=== PATIENT | female | born 1980 | race Hispanic/Latino ===

== ENCOUNTER 2017-08-17 19:04 | Emergency (ER) | payer MEDICAID ==
[2017-08-17] MEDS ORDERED: HYDROXYZINE HCL 25 MG TABLET ONE (19:30)
== END 2017-08-17 20:16 | disposition home or self-care (01) ==
LOC: EDH 19:04
DX: F41.1 Generalized anxiety disorder (principal); Z98.890 Other specified postprocedural states; Z72.0 Tobacco use

== ENCOUNTER → 2022-05-21 | Outpatient (CLI) | payer MEDICAID | END | disposition home or self-care (01) | LOC: RAH 12:41 | PROVIDERS: ATTEND Obstetrics & Gynecology | DX: N64.4 Mastodynia (principal) | CPT/HCPCS: 76641; 77066 ==

== ENCOUNTER 2024-01-26 09:59 | Inpatient (IN) | payer SELFPAY ==
[~2024-01-26] VITALS: Ht 157.5 cm; Wt 61.9 kg
[2024-01-26 10:19] LABS: APPEARANCE,URINE CLEAR (CLEAR); BILIRUBIN,URINE NEGATIVE (NEGATIVE); COLOR,URINE LIGHT-YELLOW (YELLOW); GLUCOSE, URINE (UA) NEGATIVE (NEGATIVE); KETONES,URINE 10 mg/dL (NEGATIVE); LEUKOCYTE ESTERASE ,URINE NEGATIVE Leu/uL (NEGATIVE); NITRATE,URINE NEGATIVE (NEGATIVE); PROTEIN,URINE NEGATIVE (NEGATIVE); UROBILINOGEN,URINE 0.2 mg/dL (0.2-1.0)
[2024-01-26 10:20] LABS: ADD UA MICROSCOPIC YES
[2024-01-26 10:24] LABS: HCG,QUALITATIVE URINE NEGATIVE (NEGATIVE)
[2024-01-26 10:25] LABS: BACTERIA,URINE RARE /HPF (None Seen); MUCUS,URINE RARE LPF (None Seen); RBC,URINE 0-1 /HPF (0-1); SQUAMOUS EPITHELIAL CELL,UR FEW /HPF (0-2); WBC,URINE 0-1 /HPF (0-1)
[2024-01-26 10:26] LABS: BASOPHILS # (AUTO) 0.05 K/uL (0.00-0.20); BASOPHILS % (AUTO) 0.9 % (0.0-5.0); EOSINOPHILS # (AUTO) 0.14 K/uL (0.00-0.70); EOSINOPHILS % (AUTO) 2.6 % (0.0-8.0); HEMATOCRIT 41.6 % (36-48); IMMATURE GRANULOCYTE ABSOLUTE 0.01 K/uL (0-1); LYMPHOCYTES % (AUTO) 18.4 % (21.0-51.0); MEAN CORPUSCULAR HEMOGLOBIN 34.5 pg (27.0-33.0); MEAN CORPUSCULAR HGB CONC 33.7 g/dL (32.0-36.0); MEAN CORPUSCULAR VOLUME 102.5 fL (79-99); MONOCYTES # (AUTO) 0.7 K/uL (0.1-1.0); MONOCYTES % (AUTO) 12.9 % (3.0-13.0); NEUTROPHILS # (AUTO) 3.5 K/uL (1.8-7.7); PLATELET COUNT (AUTO) 245 K/uL (130-400); RED BLOOD CELL COUNT(AUTO) 4.06 MIL/uL (4.00-5.50); RED CELL DISTRIBUTION WIDTH 14.1 % (11.0-15.5); WHITE BLOOD COUNT (AUTO) 5.3 K/uL (4.8-10.8)
[2024-01-26 10:36] LABS: CREATININE 0.7 mg/dL (0.5-1.0); POTASSIUM 3.4 mmol/L (3.5-5.1)
[2024-01-26] MEDS: DICYCLOMINE 20MG (10MG/ML) AMP IM ONE (10:44)
[2024-01-26] MEDS: THIAMINE HCL 100 MG/ML 2ML VIAL IVP ONE (10:44)
[2024-01-26] MEDS: ondanSETRON 4MG INJ IVP ONE (10:44)
[2024-01-26] MEDS: 0.9%NACL 1000ML 1,000 ML IV ONE (10:45)
[2024-01-26 10:56] LABS: ALANINE AMINOTRANSFERASE 88 U/L (12-78); ALBUMIN 3.9 g/dL (3.5-5.0); ALCOHOL, BLOOD < 3 mg/dL (0-10); ASPARTATE AMINOTRANSFERASE 121 U/L (10-37); BILIRUBIN,DIRECT 0.4 mg/dL (0.0-0.3); BILIRUBIN,TOTAL 1.3 mg/dL (0.2-1.0); TOTAL PROTEIN, SERUM 7.7 g/dL (6.0-8.3)
[2024-01-26 11:08] LABS: AMPHET/METH SCREEN,URINE NEGATIVE (NEGATIVE); BARBITURATE SCREEN, URINE NEGATIVE (NEGATIVE); BENZODIAZEPINES SCREEN,URINE NEGATIVE (NEGATIVE); CANNABINOID SCREEN,URINE NEGATIVE (NEGATIVE); COCAINE SCREEN,URINE NEGATIVE (NEGATIVE); OPIATE SCREEN,URINE NEGATIVE (NEGATIVE); PHENCYCLIDINE SCREEN,URINE NEGATIVE (NEGATIVE)
[2024-01-26] MEDS: PoTASSium BIcarbonate/CIT AC 25 MEQ TABLET.EFF PO ONE (11:38)
[2024-01-26] MEDS ORDERED: MAG/ALUM/SIMETH 30 ML UDCUP PO PRN (14:30)
[2024-01-26] MEDS ORDERED: PHARMACY COMMUNICATION MISC PRN (14:30)
[2024-01-26] MEDS ORDERED: NITROGLYCERIN 0.4 MG SL TAB SL PRN (14:30)
[2024-01-26] MEDS ORDERED: guaiFENesin-DM 200/20MG 10ML PO PRN (14:30)
[2024-01-26] MEDS ORDERED: PoTASSium chl 10% ELIXIR 20MEQ 20 MEQ/15 ML UDCUP PO PRN (15:00)
[2024-01-26] MEDS ORDERED: PoTASSium chloRIDE 20MEQ/100ML 100 ML IV PRN (15:00)
[2024-01-26] MEDS: hydrALAZine 20MG/ML VIAL IV PRN (15:10)
[2024-01-26] MEDS: ondanSETRON 4MG INJ IV PRN (15:10)
[2024-01-26] MEDS: THIAMINE HCL 100 MG, FOLic ACID 5 MG/ML VIAL 1 MG, M.V.I. IV [ADULT] 10 ML in 0.9%NACL ... IV SCH (15:34)
[2024-01-26 20:00] VITALS: BP 149/85; PULSE 99; RESP 17; TEMP 98.1
[2024-01-26] MEDS ORDERED: FLUO10CA21 PO (20:04)
[2024-01-26] MEDS ORDERED: LOSA25TA41 PO (20:04)
[2024-01-26 20:25] VITALS: O2SAT 95
[2024-01-26] MEDS: FAMOTIDINE 20MG VIAL IV SCH (21:35)
[2024-01-27] VITALS (7 sets, daily range): BP systolic 132–161; BP diastolic 78–103; PULSE 83–104; RESP 18–20; TEMP 97.7–98.7; O2SAT 99
[2024-01-27] MEDS: MAGNESIUM 2GM PREMIX 50ML 50 ML IV PRN (05:15)
[2024-01-27] MEDS: acetaMINOPHEN WITH coDEINE 1 TAB TAB PO PRN (07:24)
[2024-01-27] MEDS: ENOXAPARIN SODIUM 40 MG/0.4 ML SYRINGE SQ SCH (08:25)
[2024-01-27] MEDS: LoSARTan 25 MG TABLET PO SCH (11:22)
[2024-01-27] MEDS: LORazepam 2 MG/ML 1 ML VIAL IVP PRN (11:22)
[2024-01-27] MEDS: FLUoxetine HCL 10 MG CAPSULE PO SCH (11:22)
[2024-01-27] MEDS: 0.9%NACL 1000ML 1,000 ML IV SCH (12:32)
[2024-01-27] MEDS ORDERED: COMPOUND IV REFRIGERATED 1 EACH IVSOLN MISC PRN (16:00)
[2024-01-27] MEDS: PoTASSium chloRIDE 20MEQ ER 20 MEQ ERTAB PO ONE (17:21)
[2024-01-27] MEDS: chlordiazePOXIDE HCL 25 MG CAP PO PRN (21:48)
[2024-01-28] VITALS (10 sets, daily range): BP systolic 139–168; BP diastolic 77–110; PULSE 70–91; RESP 16–20; TEMP 97.7–98.3; O2SAT 99–100
[2024-01-28] MEDS: acetaMINOPHEN 325 MG TAB PO PRN (04:31)
[2024-01-28 06:39] LABS: BASOPHILS # (AUTO) 0.02 K/uL (0.00-0.20); BASOPHILS % (AUTO) 0.5 % (0.0-5.0); EOSINOPHILS # (AUTO) 0.19 K/uL (0.00-0.70); EOSINOPHILS % (AUTO) 4.6 % (0.0-8.0); HEMATOCRIT 34.9 % (36-48); IMMATURE GRANULOCYTE ABSOLUTE 0.01 K/uL (0-1); LYMPHOCYTES # (AUTO) 1.2 K/uL (1.0-4.8); LYMPHOCYTES % (AUTO) 28.4 % (21.0-51.0); MEAN CORPUSCULAR HEMOGLOBIN 34.7 pg (27.0-33.0); MEAN CORPUSCULAR HGB CONC 32.4 g/dL (32.0-36.0); MEAN CORPUSCULAR VOLUME 107.1 fL (79-99); MONOCYTES # (AUTO) 0.5 K/uL (0.1-1.0); MONOCYTES % (AUTO) 11.1 % (3.0-13.0); NEUTROPHILS # (AUTO) 2.3 K/uL (1.8-7.7); NEUTROPHILS % (AUTO) 55.2 % (40.0-77.0); PLATELET COUNT (AUTO) 193 K/uL (130-400); RED BLOOD CELL COUNT(AUTO) 3.26 MIL/uL (4.00-5.50); RED CELL DISTRIBUTION WIDTH 14.1 % (11.0-15.5); WHITE BLOOD COUNT (AUTO) 4.2 K/uL (4.8-10.8)
[2024-01-28 06:57] LABS: ALBUMIN 2.8 g/dL (3.5-5.0); BILIRUBIN,TOTAL 0.5 mg/dL (0.2-1.0); CREATININE 0.6 mg/dL (0.5-1.0); MAGNESIUM 1.8 mg/dL (1.80-2.40); POTASSIUM 3.7 mmol/L (3.5-5.1); TOTAL PROTEIN, SERUM 6.2 g/dL (6.0-8.3)
[2024-01-28] MEDS: DiphenhydrAMINE HCL 25 MG CAPSULE PO PRN (11:42)
[2024-01-28] MEDS: LACTULOSE 20 GM/30 ML UDCUP PO PRN (13:29)
[2024-01-29 04:00] VITALS: BP 154/93; PULSE 72; RESP 18; TEMP 98.3
[2024-01-29 05:24] LABS: BASOPHILS # (AUTO) 0.02 K/uL (0.00-0.20); BASOPHILS % (AUTO) 0.4 % (0.0-5.0); EOSINOPHILS # (AUTO) 0.31 K/uL (0.00-0.70); EOSINOPHILS % (AUTO) 6.1 % (0.0-8.0); HEMATOCRIT 34.5 % (36-48); IMMATURE GRANULOCYTE ABSOLUTE 0.01 K/uL (0-1); LYMPHOCYTES # (AUTO) 1.5 K/uL (1.0-4.8); MEAN CORPUSCULAR HEMOGLOBIN 34.5 pg (27.0-33.0); MEAN CORPUSCULAR VOLUME 104.5 fL (79-99); MONOCYTES # (AUTO) 0.5 K/uL (0.1-1.0); MONOCYTES % (AUTO) 9.2 % (3.0-13.0); NEUTROPHILS # (AUTO) 2.8 K/uL (1.8-7.7); NEUTROPHILS % (AUTO) 55.1 % (40.0-77.0); PLATELET COUNT (AUTO) 193 K/uL (130-400); RED CELL DISTRIBUTION WIDTH 13.8 % (11.0-15.5); WHITE BLOOD COUNT (AUTO) 5.1 K/uL (4.8-10.8)
[2024-01-29 05:40] LABS: ALBUMIN 2.8 g/dL (3.5-5.0); BILIRUBIN,TOTAL 0.3 mg/dL (0.2-1.0); CREATININE 0.7 mg/dL (0.5-1.0); MAGNESIUM 2.1 mg/dL (1.80-2.40); POTASSIUM 3.6 mmol/L (3.5-5.1); TOTAL PROTEIN, SERUM 6.2 g/dL (6.0-8.3)
[2024-01-29] MEDS: PoTASSium chloRIDE 20MEQ ER 20 MEQ ERTAB PO PRN (06:15)
[2024-01-29 07:48] VITALS: BP 165/101; PULSE 72; RESP 16; TEMP 98.2
[2024-01-29] MEDS: PoTASSium chloRIDE 20MEQ ER 20 MEQ ERTAB PO ONE (09:24)
[2024-01-29 10:22] VITALS: O2SAT 98
[2024-01-29 10:46] VITALS: BP 155/93; PULSE 85; RESP 16; TEMP 98.4
== END 2024-01-29 11:32 | disposition home or self-care (01) | DRG 641 ==
LOC: EDH 09:59 → EDHIP 10:00 → OBSVTOIN 10:00 → UNDOADMOB 14:24 → EDHIP 14:24 → 3AH 20:38
PROVIDERS: ADMIT Hospitalist; ATTEND Hospitalist
DX: E86.0 Dehydration (principal); F10.239 Alcohol dependence with withdrawal, unspecified; E87.1 Hypo-osmolality and hyponatremia; E87.6 Hypokalemia; K76.0 Fatty (change of) liver, not elsewhere classified; K76.89 Other specified diseases of liver; I10 Essential (primary) hypertension; F41.9 Anxiety disorder, unspecified
CPT/HCPCS: 36415; 76705; 80048; 80053; 80076; 80305; 81001; 81025; 82550; 82948; 83690; 83735; 83880; 85025; 96372; 96375; G0378; J0360; J0500; J1650; J2060; J2405; J3411; J3475; J3490; J7030; Q0163

== ENCOUNTER → 2025-01-20 | Outpatient (CLI) | payer MEDICAID ==
[~2025-01-20] MED LIST: FLUO10CA51 PO; LOSA25TA41 PO
--- NOTE | 2025-01-20 15:27 | HMCIMG ---
BILATERAL BREAST ULTRASOUND: CLINICAL HISTORY: Respiratory lump on the left breast.. Finding: Real-time examination of the both breasts demonstrates heterogeneous echotexture throughout both the breasts without evidence of focal solid masses. There is a cyst in the left breast measuring 1.6 x 1.2 x 1.8 cm. IMPRESSION: 1. Dense breast with no solid lesion seen. 2. Left breast at 1:00 there is a cyst measuring 1.6 x 1.2 x 1.8 cm. FINAL ASSESSMENT: ACR: BI-RAD- 2. Benign: Also a negative assessment; finding(s) benign abnormalities. Management: Routine mammography screening. Likelihood of Cancer: Essentially 0% likelihood of malignancy.
== END | disposition home or self-care (01) ==
LOC: RAH 13:47
PROVIDERS: ATTEND Advanced Practice Midwife
DX: N60.02 Solitary cyst of left breast (principal); N63.21 Unspecified lump in the left breast, upper outer quadrant
CPT/HCPCS: 77066